=== PATIENT | male | born 1985 | race Caucasian/White ===

== ENCOUNTER 2016-10-01 20:58 | Emergency (ER) | payer OTHER ==
[~2016-10-01] VITALS: Ht 190.5 cm; Wt 95.2 kg
[~2016-10-01 20:58] MED LIST: ADVIL200 M1 PO; B-12500 MC1 SL; CYMBALTA60 MG PO; DAY TIME COLD-237 ML PO; EXCEDRIN MIGRA1 EAC2 PO; GABAPENTIN400 MG PO; L-METHYLFOLATE15 M1 PO; LEVAQUIN500 MG PO; NICOTINE GUM2 MG BUCCAL; NORCO 5-325 TA1 EACH PO; ROBITUSSIN COU118 M4 PO; WELLBUTRIN XL150 MG PO; ZOLOFT100 MG PO
[2016-10-01] MEDS ORDERED: KEFLEX500 MG PO (21:23)
[2016-10-01] MEDS ORDERED: BACTRIM DS TAB1 EACH PO (21:23)
== END 2016-10-01 21:26 | disposition home or self-care (01) ==
LOC: ED 20:58
DX: S61.210D Laceration without foreign body of right index finger without damage to nail, subsequent encounter (principal); L08.9 Local infection of the skin and subcutaneous tissue, unspecified; F17.200 Nicotine dependence, unspecified, uncomplicated; Z79.01 Long term (current) use of anticoagulants; Z79.82 Long term (current) use of aspirin; Z79.899 Other long term (current) drug therapy; X58.XXXD Exposure to other specified factors, subsequent encounter
CPT/HCPCS: 99283

== ENCOUNTER 2016-12-22 11:52 | Emergency (ER) | payer OTHER ==
[~2016-12-22] VITALS: Ht 190.5 cm; Wt 95.2 kg
[~2016-12-22 11:52] MED LIST changes: +BACTRIM DS TAB1 EACH PO; +KEFLEX500 MG PO
[2016-12-22] MEDS ORDERED: QUETIAPINE FUMA50 MG PO (14:36)
== END 2016-12-22 15:32 | disposition home or self-care (01) ==
LOC: ED 11:52
DX: F31.9 Bipolar disorder, unspecified (principal); F15.10 Other stimulant abuse, uncomplicated; F19.10 Other psychoactive substance abuse, uncomplicated; F41.9 Anxiety disorder, unspecified; F17.200 Nicotine dependence, unspecified, uncomplicated; Z90.49 Acquired absence of other specified parts of digestive tract
CPT/HCPCS: 80053; 80176; 81001; 84443; 85025; 99283; G0480

== ENCOUNTER 2017-01-14 20:23 | Emergency (ER) | payer OTHER ==
[~2017-01-14] VITALS: Ht 190.5 cm; Wt 95.2 kg
[~2017-01-14 20:23] MED LIST changes: +QUETIAPINE FUMA50 MG PO
== END 2017-01-14 23:20 | disposition home or self-care (01) ==
LOC: ED 20:23
PROC: 0T9B70Z Drainage of Bladder with Drainage Device, Via Natural or Artificial Opening (ICD-10-PCS; principal; 2017-01-14)
DX: R45.851 Suicidal ideations (principal); F15.90 Other stimulant use, unspecified, uncomplicated; F32.9 Major depressive disorder, single episode, unspecified; F31.9 Bipolar disorder, unspecified; F41.9 Anxiety disorder, unspecified; F17.200 Nicotine dependence, unspecified, uncomplicated
CPT/HCPCS: 51701; 80053; 80176; 81001; 85025; 96360; 99283; G0480; J7030

== ENCOUNTER 2017-03-03 18:58 | Emergency (ER) | payer OTHER ==
[~2017-03-03] VITALS: Ht 190.5 cm; Wt 88.9 kg
[2017-03-03] MEDS ORDERED: NEURAPTINE30 ML (19:20)
[2017-03-03] MEDS ORDERED: CYMBALTA20 MG PO (19:21)
[2017-03-03] MEDS ORDERED: L-METHYLFOLATE7.5 M1 (19:22)
[2017-03-03] MEDS ORDERED: ELIMITE60 GM TOP (19:46)
== END 2017-03-03 20:01 | disposition home or self-care (01) ==
LOC: ED 18:58
DX: B86 Scabies (principal); F31.9 Bipolar disorder, unspecified; F41.9 Anxiety disorder, unspecified; F17.200 Nicotine dependence, unspecified, uncomplicated; Z79.899 Other long term (current) drug therapy
CPT/HCPCS: 99283